=== PATIENT | female | born 1965 | race Caucasian/White ===

== ENCOUNTER 2016-07-02 09:45 | Emergency (ER) | payer OTHER ==
[2016-07-02 09:50] VITALS: BP 136/84; PULSE 76; RESP 16; TEMP 97.5; O2SAT 98
[2016-07-02] MEDS ORDERED: KETOROLAC 30 MG/1 ML SDV IM ONE (10:20)
[2016-07-02] MEDS ORDERED: predniSONE 20 MG TAB PO ONE (10:20)
--- NOTE | 2016-07-02 10:20 | EDPHY ---
H & P Stated Complaint: Moving heavy equipment 3 days ago, mid right back pain. HPI/ROS: CHIEF COMPLAINT: Back pain HISTORY OF PRESENT ILLNESS: Patient was moving a heavy object in the operating room 2 days ago when she felt a sudden onset of pain in the right thoracic region. This is to the right of midline. No midline tenderness. No direct trauma to the back. The pain has been constant but does wax and wane. It is mild to moderate. It improves when lying down but does not resolve. It is worse with any kind of movement or pressure. No shortness of breath. No saddle anesthesia. No incontinence of bowel or bladder. No retention of bowel or bladder. No motor or sensory changes in the legs. No other associated complaints or modifying factors. PRIOR ORTHO INJURIES: None ESTABLISHED ORTHOPEDIST: None REVIEW OF SYSTEMS: Ten systems reviewed and are negative unless otherwise noted in the HPI EXAMINATION General Appearance: Alert, no distress Cardiovascular: Pulses normal throughout. Symmetric radial and DP pulses. Brisk cap refill Back: There is no midline tenderness at any level of the spine. There is mild tenderness on the right rhomboid and trapezius. There is muscle spasm in the right rhomboid. Point tenderness in this location. No crepitus, step-off or deformity. Neurological: GCS 15. A&O, sensory symmetric, strength symmetric. Normal patellar reflexes. Strength is 5/5 in all 4 limbs. Skin: Warm and dry, no rash Extremities: Nontender, no pedal edema Psychiatric: Mood and affect normal DIFFERENTIAL DIAGNOSES: Including but not limited to myofascial strain, sprain, fracture, contusion, muscle spasm MDM: 10:20 a.m. Acute thoracic myofascial strain. There is no midline tenderness or abnormality on examination. There are visual spasms witnessed. We will treat her with muscle relaxant, prednisone and 1 dose of Toradol here. She is to follow up with primary care physician, employee health or this emergency department in 2 days if no improvement. She is to return sooner for any worsening symptoms, saddle anesthesia, incontinence or motor or sensory changes of the lower extremities. She is comfortable with this plan and discharged home stable condition. Additionally I will provide a work release for the next 3 days. ED Precautions: Worsening pain. Erythema, edema, cyanosis, pallor, paresthesia or anesthesia. SUPERVISION: This patient was independently evaluated without direct examination by the attending physician. Case was discussed with attending physician. 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 - Social History Smoking Status: Never smoked Constitutional: Initial Vital Signs Temperature (C) 97.5 F 07/02/16 09:46 Heart Rate 76 07/02/16 09:46 Respiratory Rate 16 07/02/16 09:46 Blood Pressure 136/84 H 07/02/16 09:46 O2 Sat (%) 98 07/02/16 09:46 O2 Delivery Mode Room Air Allergies/Adverse Reactions: loratadine [From Claritin] Allergy (Severe, Verified 07/02/16 09:51) Swelling/neck,face,throat Home Medications: Medication Instructions Recorded Cyclobenzaprine [Flexeril 10 MG 10 mg PO TID PRN #15 tab 07/02/16 (*)] predniSONE [Deltasone] 60 mg PO DAILY #12 tablet 07/02/16 Departure - Departure Disposition: Home, Routine, Self-Care Clinical Impression: Acute thoracic back pain Qualifiers: Back pain laterality: right Qualified Code(s): M54.6 - Pain in thoracic spine Condition: Good Instructions: Thoracic Pain (ED), Muscle Spasm (ED) Additional Instructions: Warm compresses, anti-inflammatories and rest. Follow up with primary care physician or Employee Health. Return to the ER for symptoms as described Referrals: Aruna Wright MD [Primary Care Provider] - As per Instructions Stand Alone Forms: Work Excuse Prescriptions: Cyclobenzaprine [Flexeril 10 MG (*)] 10 mg PO TID PRN #15 tab PRN Reason: Spasms predniSONE [Deltasone] 60 mg PO DAILY #12 tablet
== END 2016-07-02 10:38 | disposition home or self-care (01) ==
DX: M54.6 Pain in thoracic spine (principal)
CPT/HCPCS: J1885

== ENCOUNTER 2017-10-04 10:06 | Emergency (ER) | payer OTHER ==
--- NOTE | 2017-10-04 10:24 | EDPHY ---
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 She has tried switching her shoes and even has memory foam inserts in her shoes with no relief. She reports that the pain is worse in the morning when she wakes up, at the end of her shift, and if she dorsiflexes her foot. She reports that she has been treating it conservatively with ice and rest and stretching exercises but it is not improving. She denies any actual trauma or injury. She denies any radiation, weakness, paresthesias. 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 CONSTITUTIONAL: Extremely polite and cooperative middle-aged white female who appears younger than stated age, awake and alert, no obvious distress HEENT: Atraumatic and normocephalic. EXTREMITIES: 2/2 pulses, strength 5/5, right Ankle: Plantar flexion to 50, dorsiflexion to 20. Foot inversion to 35 degree. No tenderness/swelling Anterior talofibular ligament. No tenderness/swelling Calcaneofibular ligament , no tenderness/swelling posterior talofibular ligament, no tenderness/swelling posterior inferior tibiofibular ligament. Achilles tendon intact. Tenderness to palpation at the heel and at the arch; no pain with squeeze test. no deformity, no ecchymosis. Pain does increased with dorsiflexion of the toes. DIP/PIP/MCP flexion/extension intact with good light touch sensation. no deformities, no clubbing, no cyanosis or edema. NEUROLOGICAL: no focal neuro deficits. GCS 15. Light touch sensation intact. SKIN: Warm and dry, no erythema. no rash. Good capillary refill. 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, x3, - Social History Smoking Status: Never smoked Constitutional: Initial Vital Signs Temperature (C) 36.7 C 10/04/17 10:10 Heart Rate 73 10/04/17 10:10 Respiratory Rate 16 10/04/17 10:10 Blood Pressure 127/94 H 10/04/17 10:10 O2 Sat (%) 96 10/04/17 10:10 O2 Delivery Mode Room Air Allergies/Adverse Reactions: loratadine [From Claritin] Allergy (Severe, Verified 07/02/16 09:51) Swelling/neck,face,throat Home Medications: Medication Instructions Recorded Meloxicam [Mobic 15 mg] 15 mg PO DAILY #14 tablet 10/04/17 Medical Decision Making - Diagnostics Imaging Results: Imaging Impressions Foot X-Ray 10/04/17 10:26 Impression: 1. No acute osseous findings. 2. Small plantar calcaneal enthesophyte. ED Course/Re-evaluation: Right foot x-ray ordered and shows no fracture, + mild calcaneal spur No signs of neurovascular compromise/tenting of skin/compartment syndrome/ extremities and joints examined above and below area of concern and are neurovascularly intact. Patient given a prescription for Mobic and limited work note with podiatry follow-up. This patient was seen under the supervision of my secondary supervising physician. I evaluated care for this patient independently. Discussed this patient with Dr. Jamil. Differential Diagnosis: Differential diagnosis includes but is not limited to plantar fasciitis, Achilles injury, tarsal tunnel syndrome, back strings nerve entrapment, calcaneal stress fracture, calcaneal cysts, soft tissue mass, short flexor tendon tear, gout, systemic arthritis. Departure - Departure Disposition: Home, Routine, Self-Care Clinical Impression: Pain of right heel Heel spur Qualifiers: Laterality: right Qualified Code(s): M77.31 - Calcaneal spur, right foot Condition: Good Instructions: Plantar Fasciitis (ED), Tendinitis (ED), Heel Spur (ED) Additional Instructions: Please limit use of your right foot and heel as much as possible until pain free - 10 minutes rest every hour, if required to be up and walking x 1 week. Perform gentle stretching exercises and apply ice 2-3 times per day. Follow-up with Podiatry for further evaluation and determine candidacy of orthotics. Return to the ER immediately if you experience new or worsening pain, discoloration, numbness, tingling, or any other symptoms that concern you. Referrals: Aruna Wright MD [Primary Care Provider] - As per Instructions Mehran Fishman DPM [Doctor of Podiatric Medicine] - As per Instructions Stand Alone Forms: Work Limited Duty Prescriptions: Meloxicam [Mobic 15 mg] 15 mg PO DAILY #14 tablet
[2017-10-04 11:31] VITALS: BP 118/56
== END 2017-10-04 11:27 | disposition home or self-care (01) ==
DX: M77.31 Calcaneal spur, right foot (principal)